=== PATIENT | female | born 1955 | race Caucasian/White ===

== ENCOUNTER → 2016-05-19 | Outpatient (CLI) | payer OTHER | END | disposition home or self-care (01) | LOC: CFH 08:24 | PROVIDERS: ATTEND Obstetrics & Gynecology | DX: Z12.31 Encounter for screening mammogram for malignant neoplasm of breast (principal); Z13.820 Encounter for screening for osteoporosis; N95.1 Menopausal and female climacteric states; M81.0 Age-related osteoporosis without current pathological fracture | CPT/HCPCS: 77063; 77080; G0202 ==

== ENCOUNTER → 2017-06-14 | Outpatient (CLI) | payer OTHER | END | disposition home or self-care (01) | LOC: CFH 13:40 | PROVIDERS: ATTEND Genetic Counselor, MS | DX: Z12.31 Encounter for screening mammogram for malignant neoplasm of breast (principal) | CPT/HCPCS: 77063; 77067 ==

== ENCOUNTER → 2018-06-22 | Outpatient (CLI) | payer OTHER | END | disposition home or self-care (01) | LOC: CFH 12:13 | PROVIDERS: ATTEND Genetic Counselor, MS | DX: Z12.31 Encounter for screening mammogram for malignant neoplasm of breast (principal); M85.88 Other specified disorders of bone density and structure, other site; Z78.0 Asymptomatic menopausal state | CPT/HCPCS: 77063; 77067; 77080 ==

== ENCOUNTER 2019-10-12 08:00 | Outpatient (CLI) | payer MEDICARE ==
[2019-10-12] MEDS ORDERED: FENTANYL PF 100 MCG/2ML ONE (12:56)
[2019-10-12] MEDS ORDERED: FLUMAZENIL 0.1 MG/1 ML, 5ML ONE (12:56)
[2019-10-12] MEDS ORDERED: NALOXONE 1 MG/ML, 2ML ONE (12:56)
[2019-10-12] MEDS ORDERED: MIDAZOLAM 1 MG/ML, 5ML ONE (12:56)
== END 2019-10-12 23:59 | disposition home or self-care (01) ==
LOC: RAD 08:00
PROVIDERS: ATTEND Genetic Counselor, MS
DX: M51.16 Intervertebral disc disorders with radiculopathy, lumbar region (principal); M51.17 Intervertebral disc disorders with radiculopathy, lumbosacral region; I10 Essential (primary) hypertension; J45.909 Unspecified asthma, uncomplicated; F41.9 Anxiety disorder, unspecified; E78.5 Hyperlipidemia, unspecified; G47.00 Insomnia, unspecified; E53.8 Deficiency of other specified B group vitamins; Z88.8 Allergy status to other drugs, medicaments and biological substances
CPT/HCPCS: 72148; 99156; 99157; J2250; J3010; J2310

== ENCOUNTER → 2019-10-18 | Outpatient (CLI) | payer MEDICARE | END | disposition home or self-care (01) | LOC: CFH 13:49 | PROVIDERS: ATTEND Genetic Counselor, MS | DX: Z12.31 Encounter for screening mammogram for malignant neoplasm of breast (principal) | CPT/HCPCS: 76641; 77063; 77067 ==

== ENCOUNTER 2020-03-07 05:34 | Day surgery (SDC) | payer MEDICARE ==
[2020-03-05 11:48] LABS: BASOPHILS % (AUTO) 1 % (0-1); EOSINOPHILS % (AUTO) 5 % (1-7); LYMPHOCYTES % (AUTO) 24 % (22-44); MEAN CORPUSCULAR HEMOGLOBIN 34.8 pg (27.0-34.8); MEAN CORPUSCULAR HGB CONC 34.2 g/dL (32.4-35.8); MEAN PLATELET VOLUME 8.1 fL (7.4-10.4); MONOCYTES % (AUTO) 10 % (2-9); NEUTROPHILS % (AUTO) 61 % (42-75); PLATELET COUNT 273 x10^3/uL (130-400); RED CELL DISTRIBUTION WIDTH 12.9 % (9.6-15.2)
[2020-03-05 11:52] LABS: MD NO
[2020-03-05 11:54] LABS: PROTHROMBIN TIME 10.6 Seconds (9.6-11.5)
[2020-03-05 12:36] LABS: MICROSCOPIC NOT IND
[2020-03-05 12:47] LABS: ALANINE AMINOTRANSFERASE 53 U/L (12-78); ALBUMIN 3.8 g/dL (3.4-5.0); ALKALINE PHOSPHATASE 65 U/L (45-117); ANION GAP 5 mmol/L (5-15); BILIRUBIN,TOTAL 0.4 mg/dL (0.2-1.0); CALCIUM 9.2 mg/dL (8.5-10.1); CHLORIDE 105 mmol/L (98-107); CREATININE 0.85 mg/dL (0.55-1.02); TOTAL PROTEIN 7.2 g/dL (6.4-8.2)
[~2020-03-07] VITALS: Ht 162.6 cm; Wt 87.0 kg
[~2020-03-07 05:34] MED LIST: AMLO-211 PO; B-12; BENA40TA3 PO; DIAZ5TAB4 PO; ERGO500017 PO; HYDROCHLOROTH12.5 MG PO; METH750T2 PO; MONT10TA96 PO; OXYC1TAB17 PO; OXYC9CAP PO; TIZA4TAB2 PO; TRAZ50TA66 PO
[2020-03-07] MEDS ORDERED: BACITRACIN 50,000 UNIT ONE (06:05)
[2020-03-07] MEDS ORDERED: BUPIVACAINE 0.25% ONE (06:05)
[2020-03-07] MEDS ORDERED: VANCOMYCIN 1,000 MG ONE (06:05)
[2020-03-07] MEDS ORDERED: BUPIVACAINE/EPI 0.5% 1:200K ONE (06:05)
[2020-03-07 06:08] VITALS: BP 140/83
[2020-03-07] MEDS ORDERED: CHLORHEXIDINE 15 ML UDC MM ONE (06:30)
[2020-03-07] MEDS ORDERED: LACTATED RINGERS 1,000 ML IV SCH (06:30)
[2020-03-07] MEDS ORDERED: FENTANYL PF 250 MCG/5ML ONE (06:56)
[2020-03-07] MEDS ORDERED: MIDAZOLAM 1 MG/ML, 2ML ONE (06:56)
[2020-03-07] MEDS ORDERED: PROPOFOL 100 ML ONE (06:57)
[2020-03-07] MEDS ORDERED: ROCURONIUM 10 MG/ML,10ML ONE (07:16)
[2020-03-07] MEDS ORDERED: DEXAMETHASONE 4 MG/ML, 1ML ONE (07:16)
[2020-03-07] MEDS ORDERED: ONDANSETRON 2MG/ML, 2ML ONE (07:16)
[2020-03-07] MEDS ORDERED: SUCCINYLCHOLINE 20 MG/ML, 10ML ONE (07:16)
[2020-03-07] MEDS ORDERED: BUPIVACAINE LIPOSOME/PF 10ML INFIL ONE (07:49)
[2020-03-07] MEDS ORDERED: LORazepam 2 MG/ML, 1ML IVPush PRN (08:00)
[2020-03-07] MEDS ORDERED: hydrALAzine 20 MG/ML, 1ML IV PRN (08:00)
[2020-03-07] MEDS ORDERED: PROMETHAZINE 25 MG/ML, 1ML IVPush PRN (08:00)
[2020-03-07] MEDS ORDERED: LABETALOL 5MG/ML, 20ML IV PRN (08:00)
[2020-03-07] MEDS ORDERED: PROMETHAZINE 25 MG SUPP PR PRN (08:00)
[2020-03-07] MEDS ORDERED: ACETAMINOPHEN 325 MG TABLET PO PRN (08:00)
[2020-03-07] MEDS ORDERED: ONDANSETRON 2MG/ML, 2ML IVPush PRN ×2 (08:00→09:30)
[2020-03-07] MEDS ORDERED: METHOCARBAMOL 1,000 MG in DEXTROSE 5% 100 ML IV PRN (08:00)
[2020-03-07] MEDS ORDERED: FENTANYL PF 100 MCG/2ML ONE ×2 (08:07→09:22)
[2020-03-07] MEDS ORDERED: BUPIVACAINE/PF 0.25% EPIDPUSH ONE (08:12)
[2020-03-07] MEDS ORDERED: FENTANYL PF 100 MCG/2ML EPIDPUSH ONE (08:15)
[2020-03-07] MEDS ORDERED: OXYcodone 5 MG/5 ML ORAL.SOL UDC ONE (09:22)
[2020-03-07] MEDS ORDERED: OXYC1TAB17 PO (09:26)
[2020-03-07] MEDS ORDERED: CYCL-259 PO (09:26)
[2020-03-07] MEDS ORDERED: METHOCARBAMOL 750 MG TABLET PO PRN (09:30)
[2020-03-07] MEDS ORDERED: D5%-0.9% NACL+KCL 20MEQ 1,000 ML IV SCH (09:30)
[2020-03-07] MEDS ORDERED: ERGOCALCIFEROL 50,000 UNIT CAPSULE PO SCH (09:30)
[2020-03-07] MEDS ORDERED: CEFAZOLIN PMX 1GM/50ML 50 ML IVPB SCH (09:30)
[2020-03-07] MEDS ORDERED: TRAZODONE 50MG TABLET PO SCH (09:30)
[2020-03-07] MEDS ORDERED: morphine SULFATE 10 MG/ML, 1ML IVPush PRN (09:30)
[2020-03-07] MEDS ORDERED: PHARMACY MAY ADJ FOR RENAL FX MC PRN (09:30)
[2020-03-07] MEDS ORDERED: DIPHENHYDRAMINE 50 MG/ML, 1ML IVPush PRN (09:30)
[2020-03-07] MEDS: FENTANYL PF 100 MCG/2ML IV PRN ×3 (09:30→09:45)
[2020-03-07] MEDS: OXYcodone 5 MG/5 ML ORAL.SOL UDC PO PRN ×2 (09:35→13:32)
[2020-03-07] MEDS ORDERED: DIAZEPAM 5 MG TABLET ONE (09:36)
[2020-03-07] MEDS: HYDROmorphone 1 MG/ML, 1ML INJ IVPush PRN ×2 (12:34→12:50)
[2020-03-07] MEDS ORDERED: OXYCODONE MYRISTATE 9 MG PO SCH (21:00)
[2020-03-07] MEDS ORDERED: SODIUM CHLORIDE FLUSH 10ML SYR IVF SCH (21:00)
[2020-03-08] MEDS ORDERED: AMLODIPINE 10 MG TAB PO SCH (09:00)
[2020-03-08] MEDS ORDERED: TEMPLATE NON-FORMULARY MED. (Benazepril Hcl** 40 MG) PO SCH (09:00)
[2020-03-08] MEDS ORDERED: HYDROCHLOROTHIAZIDE 12.5 MG CAPSULE PO SCH (09:00)
[2020-03-08] MEDS ORDERED: MONTELUKAST 10 MG TABLET PO SCH (09:00)
[2020-03-08] MEDS ORDERED: DIAZEPAM 5 MG TABLET PO SCH (09:00)
== END 2020-03-07 13:45 | disposition home or self-care (01) ==
LOC: OUT 05:34
PROVIDERS: ATTEND Neurological Surgery
DX: M48.061 Spinal stenosis, lumbar region without neurogenic claudication (principal); I10 Essential (primary) hypertension; M19.90 Unspecified osteoarthritis, unspecified site; Z88.1 Allergy status to other antibiotic agents; Z79.899 Other long term (current) drug therapy; Z20.822 Contact with and (suspected) exposure to COVID-19; Z72.89 Other problems related to lifestyle; Z82.49 Family history of ischemic heart disease and other diseases of the circulatory system; Z83.3 Family history of diabetes mellitus
CPT/HCPCS: 36415; 63030; 63035; 63056; 63057; 71046; 72100; 72110; 80053; 81003; 85025; 85610; 85730; 93005; 95938; 95941; J0330; J1100; J1170; J2250; J2405; J2704; J3010; J3370; J7120; U0003

== ENCOUNTER 2020-04-18 11:16 | Outpatient (CLI) | payer MEDICARE ==
[~2020-04-18 11:16] MED LIST changes: +CYCL10TA2 PO; +METH-640 PO; -METH750T2 PO; +MONT10TA17 PO; -MONT10TA96 PO
[2020-04-18] MEDS ORDERED: FENTANYL PF 100 MCG/2ML ONE ×2 (12:28)
[2020-04-18] MEDS ORDERED: FLUMAZENIL 0.1 MG/1 ML, 5ML ONE (12:28)
[2020-04-18] MEDS ORDERED: NALOXONE 1 MG/ML, 2ML ONE (12:28)
[2020-04-18] MEDS ORDERED: MIDAZOLAM 1 MG/ML, 5ML ONE (12:28)
== END 2020-04-18 23:59 | disposition home or self-care (01) ==
LOC: RAD 11:16
PROVIDERS: ATTEND Nurse Practitioner
DX: M50.123 Cervical disc disorder at C6-C7 level with radiculopathy (principal); M48.02 Spinal stenosis, cervical region; M51.16 Intervertebral disc disorders with radiculopathy, lumbar region; M47.896 Other spondylosis, lumbar region; G89.4 Chronic pain syndrome; I10 Essential (primary) hypertension; J45.909 Unspecified asthma, uncomplicated; Z79.891 Long term (current) use of opiate analgesic; Z79.899 Other long term (current) drug therapy; Z88.8 Allergy status to other drugs, medicaments and biological substances
CPT/HCPCS: 72052; 72141; 99156; 99157; J2250; J3010; J2310

== ENCOUNTER 2020-10-22 09:45 | Outpatient (CLI) | payer MEDICARE ==
[~2020-10-22 09:45] MED LIST changes: +OXYC1TAB16 PO; -OXYC1TAB17 PO
== END 2020-10-22 23:59 | disposition home or self-care (01) ==
LOC: CFH 09:45
PROVIDERS: ATTEND Genetic Counselor, MS
DX: Z12.31 Encounter for screening mammogram for malignant neoplasm of breast (principal); Z12.39 Encounter for other screening for malignant neoplasm of breast; M85.88 Other specified disorders of bone density and structure, other site; N95.9 Unspecified menopausal and perimenopausal disorder
CPT/HCPCS: 76641; 77063; 77067; 77080